=== PATIENT | male | born 1975 | race African-American/Black ===

== ENCOUNTER 2022-03-08 12:31 | Inpatient (IN) | payer OTHER ==
[2022-03-08 14:23] VITALS: BMI 24.0
[2022-03-08] MEDS ORDERED: NICOTINE POLACRILEX 2 MG GUM BUC PRN (19:28)
[2022-03-08] MEDS ORDERED: IBUPROFEN 400 MG TABLET (FP) PO PRN (19:28)
[2022-03-08] MEDS ORDERED: ACETAMINOPHEN 325 MG TABLET (FP) PO PRN ×2 (19:28)
[2022-03-08] MEDS ORDERED: MAGNESIUM HYDROX 2400MG/30ML ORAL SUSPENSION 30 ML CUP PO PRN (19:28)
[2022-03-08] MEDS ORDERED: BENZOCAINE/MENTHOL (CHLORASEPTIC ) LOZENGE MM PRN (19:28)
[2022-03-08] MEDS ORDERED: LOPERAMIDE HCL 2 MG CAPSULE PO PRN (19:28)
[2022-03-08] MEDS ORDERED: DICYCLOMINE HCL 10 MG CAPSULE PO PRN (19:28)
[2022-03-08] MEDS ORDERED: MAG HYDROX/AL HYDROX/SIMETH 30 ML UNIT-DOSE CUP PO PRN (19:28)
[2022-03-08] MEDS ORDERED: BISMUTH SUBSALICYLATE 524 MG/30 ML PO PRN (19:28)
[2022-03-08] MEDS ORDERED: IBUPROFEN 600 MG TABLET (FP) PO PRN (19:28)
[2022-03-08] MEDS ORDERED: MAGNESIUM CITRATE 300 ML BOTTLE PO PRN (19:28)
[2022-03-08] MEDS ORDERED: methaDONE HCL 10 MG TABLET (FOR DETOX USE ONLY) PO ONE (20:45)
[2022-03-08] MEDS: THIAMINE HCL 100 MG TABLET (FP) PO SCH (22:09)
[2022-03-08] MEDS: MELATONIN 5 MG TABLETS PO SCH (22:38)
[2022-03-09] MEDS: cloNIDine HCL 0.1 MG TABLET PO PRN ×2 (06:10→22:21)
[2022-03-09 09:48] LABS: ALBUMIN 3.4 g/dl (3.4-5.0); CALCIUM 9.4 mg/dL (8.5-10.1)
[2022-03-09 09:50] LABS: CREATININE 1.1 mg/dL (0.55-1.3)
[2022-03-09 09:52] LABS: BILIRUBIN,TOTAL 0.2 mg/dL (0.2-1); TOT PROT 7.4 g/dl (6.4-8.2)
[2022-03-09 09:57] LABS: HEMATOCRIT 44.1 % (35.4-49); HEMOGLOBIN 14.3 GM/dL (11.7-16.9); MCH 28.2 pg (25.7-33.7); MCHC 32.3 g/dl (32.0-35.9); MEAN CELL VOLUME 87.1 fl (80-96); MEAN PLT VOLUME 8.2 fl (7.5-11.1); PLATELET COUNT 339 10^3/uL (134-434); RBC 5.06 M/mm3 (4.00-5.60); RDW 13.7 % (11.9-15.9); WHITE BLOOD COUNT 7.7 K/mm3 (4.0-10.0)
[2022-03-09] MEDS: METHOCARBAMOL 500 MG TABLET PO PRN (10:29)
[2022-03-09] MEDS: PRENATAL VITAMINS W/ FOLIC ACID TABLET (FP) PO SCH (10:29)
[2022-03-09] MEDS: NICOTINE 14 MG/24 HOURS TOPICAL PATCH TD SCH (10:31)
[2022-03-09] MEDS: THIAMINE HCL 100 MG TABLET (FP) PO SCH (22:21)
[2022-03-09] MEDS: MELATONIN 5 MG TABLETS PO SCH (22:21)
[2022-03-10] MEDS ORDERED: methaDONE HCL 10 MG TABLET (FOR DETOX USE ONLY) PO ONE (10:00)
[2022-03-10] MEDS: PRENATAL VITAMINS W/ FOLIC ACID TABLET (FP) PO SCH (10:23)
[2022-03-10] MEDS: NICOTINE 14 MG/24 HOURS TOPICAL PATCH TD SCH (10:25)
[2022-03-10] MEDS: METHOCARBAMOL 500 MG TABLET PO PRN ×2 (10:27→22:25)
[2022-03-10] MEDS: cloNIDine HCL 0.1 MG TABLET PO PRN ×2 (10:27→23:57)
[2022-03-10] MEDS ORDERED: diazePAM 5 MG TABLET PO PRN (13:17)
[2022-03-10] MEDS: MELATONIN 5 MG TABLETS PO SCH (22:25)
[2022-03-10] MEDS: THIAMINE HCL 100 MG TABLET (FP) PO SCH (22:25)
[2022-03-10] MEDS: ONDANSETRON *ODT* 4 MG TABLET SL PRN (23:57)
[2022-03-11] MEDS: PRENATAL VITAMINS W/ FOLIC ACID TABLET (FP) PO SCH (10:22)
[2022-03-11] MEDS: NICOTINE 14 MG/24 HOURS TOPICAL PATCH TD SCH (10:23)
[2022-03-11] MEDS: ONDANSETRON *ODT* 4 MG TABLET SL PRN (16:59)
[2022-03-11] MEDS: THIAMINE HCL 100 MG TABLET (FP) PO SCH (23:10)
[2022-03-11] MEDS ORDERED: TRIMETHOBENZAMIDE HCL 200MG/2ML INJ IM ONE (23:34)
[2022-03-11] MEDS: MELATONIN 5 MG TABLETS PO SCH (23:54)
[2022-03-12 00:12] VITALS: BP 162/110; PULSE 65; RESP 16; TEMP 100
[2022-03-12] MEDS ORDERED: methaDONE HCL 10 MG TABLET (FOR DETOX USE ONLY) PO ONE (10:00)
== END 2022-03-12 08:28 | disposition short-term general hospital (02) | DRG 773 ==
LOC: YASAS 12:31 → Y6N 19:50
PROVIDERS: ADMIT Allergy & Immunology; ATTEND Surgery
PROC: HZ2ZZZZ Detoxification Services for Substance Abuse Treatment (ICD-10-PCS; principal; 2022-03-08)
DX: F11.23 Opioid dependence with withdrawal (principal); F14.20 Cocaine dependence, uncomplicated; F12.20 Cannabis dependence, uncomplicated; F17.210 Nicotine dependence, cigarettes, uncomplicated; F31.9 Bipolar disorder, unspecified; G40.509 Epileptic seizures related to external causes, not intractable, without status epilepticus; I10 Essential (primary) hypertension; R11.2 Nausea with vomiting, unspecified; R42 Dizziness and giddiness
CPT/HCPCS: 36415; 80053; 85027; 86780; 93005; 93010; C9803-CS; Q0162; U0003; U0005

== ENCOUNTER 2022-03-12 02:25 | Observation (INO) | payer OTHER ==
[2022-03-12] MEDS ORDERED: ONDANSETRON 4 MG/2 ML VIAL IVPUSH ONE ×2 (03:32→06:59)
[2022-03-12] MEDS ORDERED: SODIUM CHLORIDE 0.9% 500 ML INFUS.BAG IV ONE (03:41)
[2022-03-12] MEDS ORDERED: ACETAMINOPHEN 1000 MG/100 ML BAG IVPB ONE (03:41)
[2022-03-12] MEDS ORDERED: ACETAMINOPHEN INJECTION 100 ML IVPB ONE (03:49)
[2022-03-12] MEDS ORDERED: ONDANSETRON 4 MG/2 ML VIAL ONE ×2 (03:49→06:16)
[2022-03-12 04:12] LABS: BASO % 0.8 % (0-2.0); EOS % 0.2 % (0-4.5); HEMATOCRIT 49.2 % (35.4-49); HEMOGLOBIN 16.5 GM/dL (11.7-16.9); LYMPH % 13.8 % (8-40); MCH 28.4 pg (25.7-33.7); MCHC 33.4 g/dl (32.0-35.9); MEAN CELL VOLUME 85.1 fl (80-96); MEAN PLT VOLUME 7.2 fl (7.5-11.1); MONO % 5.8 % (3.8-10.2); NEUT % 79.4 % (42.8-82.8); PLATELET COUNT 402 10^3/uL (134-434); RBC 5.78 M/mm3 (4.00-5.60); WHITE BLOOD COUNT 14.9 K/mm3 (4.0-10.0)
[2022-03-12 04:34] LABS: ALBUMIN 3.9 g/dl (3.4-5.0); BLOOD UREA NITROGEN 10.8 mg/dL (7-18); MAGNESIUM 2.1 mg/dL (1.8-2.4)
[2022-03-12 04:36] LABS: CREATININE 1.1 mg/dL (0.55-1.3)
[2022-03-12 04:38] LABS: BILIRUBIN,TOTAL 0.6 mg/dL (0.2-1); TOT PROT 8.7 g/dl (6.4-8.2)
[2022-03-12] MEDS ORDERED: methaDONE HCL 10 MG TABLET PO ONE (08:02)
[2022-03-12] MEDS ORDERED: diazePAM 5 MG TABLET PO ONE (08:05)
[2022-03-12] MEDS ORDERED: diazePAM 5 MG TABLET ONE (08:09)
[2022-03-12] MEDS ORDERED: diazePAM 5 MG TABLET PO PRN (09:12)
[2022-03-12] MEDS ORDERED: METHOCARBAMOL 500 MG TABLET PO PRN (09:12)
[2022-03-12] MEDS ORDERED: ONDANSETRON 4 MG/2 ML VIAL IVPUSH PRN (09:13)
[2022-03-12] MEDS ORDERED: THIAMINE HCL 100 MG TABLET (FP) ONE (09:20)
[2022-03-12] MEDS ORDERED: FAMOTIDINE 20 MG TABLET ONE (09:20)
[2022-03-12] MEDS ORDERED: MULTIVITAMINS (DAILY MVI) TABLET (FP) ONE (09:20)
[2022-03-12] MEDS ORDERED: ALBUTEROL SO4 HFA INHALER IH PRN (09:31)
[2022-03-12] MEDS: SODIUM CHLORIDE 1,000 ML IV SCH ×2 (09:41→18:29)
[2022-03-12] MEDS: MULTIVITAMINS (DAILY MVI) TABLET (FP) PO SCH (09:41)
[2022-03-12] MEDS: THIAMINE HCL 100 MG TABLET (FP) PO SCH (09:41)
[2022-03-12] MEDS: FAMOTIDINE 20 MG TABLET PO SCH (09:41)
[2022-03-12] MEDS ORDERED: cloNIDine HCL 0.1 MG TABLET ONE (10:00)
[2022-03-12] MEDS ORDERED: ENOXAPARIN NA (PORCINE) 40 MG/0.4 ML DISP.SYRIN SQ ONE (10:00)
[2022-03-12] MEDS: cloNIDine HCL 0.1 MG TABLET PO SCH ×2 (10:03→21:39)
[2022-03-12] MEDS: ENOXAPARIN NA (PORCINE) 40 MG/0.4 ML DISP.SYRIN SQ SCH (10:03)
[2022-03-12 11:04] VITALS: BMI 16.5
[2022-03-12 12:48] LABS: PH,URINE 7.5 (5.0-8.0); URINE APPEARANCE CLEAR; URINE BILIRUBIN NEGATIVE (NEGATIVE); URINE COLOR YELLOW; URINE GLUCOSE (UA) NEGATIVE (NEGATIVE); URINE KETONE NEGATIVE (NEGATIVE); URINE LEUK ESTERASE NEGATIVE (NEGATIVE); URINE NITRITE NEGATIVE (NEGATIVE); URINE PROTEIN NEGATIVE (NEGATIVE)
[2022-03-13] MEDS: FAMOTIDINE 20 MG TABLET PO SCH (10:33)
[2022-03-13] MEDS: MULTIVITAMINS (DAILY MVI) TABLET (FP) PO SCH (10:33)
[2022-03-13] MEDS: cloNIDine HCL 0.1 MG TABLET PO SCH ×2 (10:33→21:30)
[2022-03-13] MEDS: SODIUM CHLORIDE 1,000 ML IV SCH (10:33)
[2022-03-13] MEDS: THIAMINE HCL 100 MG TABLET (FP) PO SCH (10:33)
[2022-03-13] MEDS: ENOXAPARIN NA (PORCINE) 40 MG/0.4 ML DISP.SYRIN SQ SCH (10:34)
[2022-03-13 11:17] LABS: BASO % 0.7 % (0-2.0); EOS % 0.3 % (0-4.5); HEMATOCRIT 46.4 % (35.4-49); HEMOGLOBIN 15.4 GM/dL (11.7-16.9); LYMPH % 14.4 % (8-40); MCH 28.3 pg (25.7-33.7); MCHC 33.3 g/dl (32.0-35.9); MEAN CELL VOLUME 85.2 fl (80-96); MEAN PLT VOLUME 7.8 fl (7.5-11.1); MONO % 5.1 % (3.8-10.2); NEUT % 79.5 % (42.8-82.8); PLATELET COUNT 378 10^3/uL (134-434); RBC 5.44 M/mm3 (4.00-5.60); WHITE BLOOD COUNT 10.7 K/mm3 (4.0-10.0)
[2022-03-13 11:44] LABS: ALBUMIN 3.4 g/dl (3.4-5.0); CALCIUM 9.3 mg/dL (8.5-10.1)
[2022-03-13 11:45] LABS: BLOOD UREA NITROGEN 12.8 mg/dL (7-18)
[2022-03-13 11:49] LABS: BILIRUBIN,TOTAL 0.6 mg/dL (0.2-1); TOT PROT 7.9 g/dl (6.4-8.2)
[2022-03-14] MEDS: SODIUM CHLORIDE 1,000 ML IV SCH (00:38)
[2022-03-14 08:57] LABS: BASO % 0.6 % (0-2.0); EOS % 0.6 % (0-4.5); HEMATOCRIT 42.2 % (35.4-49); HEMOGLOBIN 13.9 GM/dL (11.7-16.9); LYMPH % 16.1 % (8-40); MCH 28.1 pg (25.7-33.7); MEAN CELL VOLUME 85.2 fl (80-96); MEAN PLT VOLUME 7.2 fl (7.5-11.1); MONO % 4.7 % (3.8-10.2); PLATELET COUNT 362 10^3/uL (134-434); RBC 4.95 M/mm3 (4.00-5.60); RDW 13.9 % (11.9-15.9); WHITE BLOOD COUNT 10.3 K/mm3 (4.0-10.0)
[2022-03-14 09:01] LABS: INR 1.18 (0.83-1.09); PROTHROMBIN TIME (PATIENT) 13.6 SEC (9.7-13.0)
[2022-03-14 09:04] LABS: ACTIVATED PTT 35.9 SECONDS (25.2-36.5)
[2022-03-14 09:56] LABS: CALCIUM 9.2 mg/dL (8.5-10.1)
[2022-03-14 09:57] LABS: BLOOD UREA NITROGEN 14.3 mg/dL (7-18)
[2022-03-14 09:58] LABS: ALBUMIN 3.2 g/dl (3.4-5.0)
[2022-03-14 10:01] LABS: BILIRUBIN,DIRECT 0.1 mg/dL (0.0-0.2)
[2022-03-14 10:03] LABS: BILIRUBIN,TOTAL 0.5 mg/dL (0.2-1); TOT PROT 7.1 g/dl (6.4-8.2)
[2022-03-14] MEDS: MULTIVITAMINS (DAILY MVI) TABLET (FP) PO SCH (10:51)
[2022-03-14] MEDS: FAMOTIDINE 20 MG TABLET PO SCH (10:51)
[2022-03-14] MEDS: cloNIDine HCL 0.1 MG TABLET PO SCH ×2 (10:51→21:34)
[2022-03-14] MEDS: THIAMINE HCL 100 MG TABLET (FP) PO SCH (10:51)
[2022-03-14] MEDS: ENOXAPARIN NA (PORCINE) 40 MG/0.4 ML DISP.SYRIN SQ SCH (10:52)
[2022-03-14] MEDS ORDERED: ACETAMINOPHEN 325 MG TABLET (FP) PO PRN (11:09)
[2022-03-14] MEDS ORDERED: SIMETHICONE 80 MG TAB.CHEW (FP) PO PRN (12:19)
[2022-03-15] MEDS: SODIUM CHLORIDE 1,000 ML IV SCH (10:06)
[2022-03-15] MEDS: ENOXAPARIN NA (PORCINE) 40 MG/0.4 ML DISP.SYRIN SQ SCH (10:16)
[2022-03-15] MEDS: THIAMINE HCL 100 MG TABLET (FP) PO SCH (10:17)
[2022-03-15] MEDS: FAMOTIDINE 20 MG TABLET PO SCH (10:17)
[2022-03-15] MEDS: MULTIVITAMINS (DAILY MVI) TABLET (FP) PO SCH (10:17)
[2022-03-15] MEDS: cloNIDine HCL 0.1 MG TABLET PO SCH (10:24)
[2022-03-15 14:10] VITALS: BP 147/87; PULSE 67; RESP 12; TEMP 98.8
== END 2022-03-15 13:15 | disposition other institution (70) ==
LOC: JER 02:25 → JERBED 08:16 → J5S 10:45
PROVIDERS: ADMIT Internal Medicine; ATTEND Internal Medicine
PROC: 3E033NZ Introduction of Analgesics, Hypnotics, Sedatives into Peripheral Vein, Percutaneous Approach (ICD-10-PCS; principal; 2022-03-12)
PROC: 3E023GC Introduction of Other Therapeutic Substance into Muscle, Percutaneous Approach (ICD-10-PCS; 2022-03-12)
PROC: 3E033GC Introduction of Other Therapeutic Substance into Peripheral Vein, Percutaneous Approach (ICD-10-PCS; 2022-03-12)
PROC: 3E0337Z Introduction of Electrolytic and Water Balance Substance into Peripheral Vein, Percutaneous Approach (ICD-10-PCS; 2022-03-12)
DX: D18.09 Hemangioma of other sites (principal); F10.20 Alcohol dependence, uncomplicated; F19.10 Other psychoactive substance abuse, uncomplicated; B19.20 Unspecified viral hepatitis C without hepatic coma; F17.210 Nicotine dependence, cigarettes, uncomplicated; F31.9 Bipolar disorder, unspecified; J45.909 Unspecified asthma, uncomplicated; I10 Essential (primary) hypertension; R11.2 Nausea with vomiting, unspecified
CPT/HCPCS: 36415; 70450-TC; 74177-TC; 74183-TC; 80048; 80053; 80076; 81003; 82105; 83690; 83735; 84100; 84484; 85025; 85610; 85730; 86704; 86708; 86803; 87340; 87517; 87522; 87536; 87902; 93005; 93010; 96361; 96372; 96374; 96375; 96376; 99285-25; C9803-CS; G0378; Q9967; U0003; U0005